=== PATIENT | female | born 1955 | race Caucasian/White ===

== ENCOUNTER 2020-05-08 14:43 | Outpatient (REF) | payer MEDICARE, MEDICAID, SELFPAY ==
--- NOTE | 2020-05-08 | XR_ITS ---
EXAMINATION: XR CERVICAL SPINE. XR THORACIC SPINE. XR LUMBAR SPINE. CLINICAL INFORMATION: Cervicalgia, back pain. COMPARISON: No priors available TECHNIQUE: 3 views of the cervical spine. AP and lateral views of the thoracic spine. 3 views of the lumbar spine. FINDINGS: Cervical spine: Normal alignment and cervical lordosis. No fracture or prevertebral soft tissue swelling. Mild degenerative disc disease at C3-C4 and C5-C6. There is facet arthrosis of the mid cervical spine. Thoracic spine: Normal alignment and thoracic kyphosis. Moderate degenerative disc disease of the midthoracic spine. No fracture or focal osseous lesion. Lumbar spine: Normal alignment and lumbar lordosis. Moderate degenerative disc disease at L5-S1 and probable bilateral facet arthrosis at this level. No focal osseous lesion. IMPRESSION: Normal alignment with mild to moderate degenerative disc disease of the cervical, thoracic, and lumbar spine. No acute abnormalities. Degenerative changes are most prominent at the mid aspect of the thoracic spine, and the lumbosacral junction.
== END 2020-05-08 14:44 | disposition home or self-care (01) ==
LOC: HO.XRAY 14:43
PROVIDERS: PCP Family Medicine; Visit Provider Family Medicine
DX: M54.2 Cervicalgia (principal); M54.5 Low back pain
CPT/HCPCS: 72040; 72072; 72100

== ENCOUNTER 2020-06-24 12:50 | Outpatient (REF) | payer MEDICARE, MEDICAID, SELFPAY | END 2020-06-24 12:51 | disposition home or self-care (01) | LOC: HO.LAB 12:50 | PROVIDERS: PCP Family Medicine; Visit Provider Internal Medicine | DX: Z20.828 Contact with and (suspected) exposure to other viral communicable diseases (principal) | CPT/HCPCS: C9803; U0003 ==

== ENCOUNTER → 2020-10-21 12:16 | Outpatient (BNVA) | payer MEDICARE, MEDICAID, SELFPAY | PROVIDERS: PCP Family Medicine; Visit Provider Surgery | DX: C50.412 Malignant neoplasm of upper-outer quadrant of left female breast (principal); Z17.0 Estrogen receptor positive status [ER+] | CPT/HCPCS: 99212 ==

== ENCOUNTER 2021-04-09 14:39 | Outpatient (REF) | payer MEDICARE, MEDICAID, SELFPAY ==
--- NOTE | ~2021-04-09 | MM_ITS ---
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 Due for yearly. COMPARISON: Mammography: 06/11/2019, 06/08/2018, 05/19/2017, 04/27/2016 TECHNIQUE: Digital breast tomosynthesis is performed in both the craniocaudal and mediolateral oblique views along with computer-aided detection (CAD). Synthesized 2D images are generated from the tomosynthesis. FINDINGS: There are scattered areas of fibroglandular density (ACR BI-RADS breast composition Category b). There are no significant masses, abnormal calcifications, or other abnormalities. There is minor scarring upper left breast similar to prior exam. No developing density. No significant changes. MM/MM tomosynthesis screening BI IMPRESSION: No mammographic evidence of malignancy. Minor scarring upper left breast, stable. ASSESSMENT: BI-RADS 2: Benign RECOMMENDATION: Routine annual mammography screening. This patient's information was entered into a reminder system with a target due date for their next mammogram.
== END 2021-04-09 14:40 | disposition home or self-care (01) ==
LOC: HO.MAMMO 14:39
PROVIDERS: Visit Provider Family Medicine
DX: Z12.31 Encounter for screening mammogram for malignant neoplasm of breast (principal)
CPT/HCPCS: 77063; 77067

== ENCOUNTER → 2021-05-12 13:58 | Outpatient (BNVA) | payer MEDICARE, MEDICAID, SELFPAY | PROVIDERS: PCP Family Medicine; Referring Provider Family Medicine; Visit Provider Surgery | DX: C50.412 Malignant neoplasm of upper-outer quadrant of left female breast (principal); Z17.0 Estrogen receptor positive status [ER+] | CPT/HCPCS: 99212 ==

== ENCOUNTER 2021-06-24 10:57 | Emergency (ER) | payer MEDICARE, MEDICAID, SELFPAY ==
[2021-06-24 11:05] VITALS: BP 157/77; PULSE 79; RESP 18; TEMP 36.8; O2SAT 99; BMI 26.4
--- NOTE | 2021-06-24 11:11 | ED.GENADULT ---
HPI - General Adult General Chief complaint: General Medical Stated complaint: drank bleach, airway tight Time Seen by Provider: 06/24/21 11:09 Source: patient and family Limitations: no limitations History of Present Illness HPI narrative: This is a 66-year-old female who was doing laundry, keeps a container of bleach nearby, also had a water container that appeared similar. Patient accidentally took a swallow of the bleach and subsequently developed discomfort in her throat with some feeling of shortness of breath and slight noise in her upper airway. Patient drank water and milk and then called poison Control and because of her breathing issues was referred to the ED. Patient denies any dizziness, chest pain, nausea vomiting, abdominal pain. Related Data Home Medications Medication Instructions Recorded Confirmed baclofen 5 mg tablet 5 mg PO BEDTIME 10/07/20 10/21/20 multivitamin 1 tab PO DAILY 10/07/20 10/21/20 sertraline 25 mg tablet 25 mg PO DAILY 10/07/20 10/21/20 trazodone 100 mg tablet 100 mg PO BEDTIME 10/07/20 10/21/20 albuterol sulfate 90 mcg/actuation 2 puff INHALATION Q4-6H PRN 10/21/20 10/21/20 aerosol inhaler (Proventil HFA) bupropion HCl 150 mg 24 hr tablet, 150 mg PO QAM 10/21/20 10/21/20 extended release calcium carbonate-vitamin D3 600 cap PO 10/21/20 10/21/20 mg (1,500 mg)-400 unit capsule fluticasone propionate 110 1 puff INHALATION BID 10/21/20 10/21/20 mcg/actuation HFA aerosol inhaler (Flovent HFA) hydrochlorothiazide 12.5 mg capsule 12.5 mg PO DAILY 10/21/20 10/21/20 hydroxyzine pamoate 50 mg capsule 50 mg PO Q6H PRN cap 10/21/20 10/21/20 letrozole 2.5 mg tablet 2.5 mg PO DAILY 10/21/20 10/21/20 loratadine 10 mg capsule 10 mg PO DAILY 10/21/20 10/21/20 multivitamin 1 tab PO DAILY 10/21/20 10/21/20 naproxen 500 mg tablet 500 mg PO BID 10/21/20 10/21/20 omeprazole 20 mg capsule,delayed 20 mg PO DAILY 10/21/20 10/21/20 release Allergies Allergy/AdvReac Type Severity Reaction Status Date / Time Seasonal Allergy Unknown Unknown Uncoded 08/18/20 13:48 Review of Systems Constitutional: Constitutional: Reports as per HPI ENT: Denies hoarseness, Denies lip swelling, Reports sore throat and Denies tongue swelling Cardiovascular: Cardiovascular: Reports as per HPI Respiratory: Respiratory: Reports as per HPI Gastrointestinal: Gastrointestinal: Reports as per HPI Neurologic: Denies Sensory deficit (Neuro) Allergic/Immunologic: Allergic/Immunologic: Denies lip swelling and Denies tongue swelling PMF Past Medical History Medical History Anemia Anxiety Asthma Depression Surgical History History of colonoscopy (04/15/17) History of left breast biopsy Hx of removal of cyst Family History Family History Father Heart disease Social History Social History Alcohol intake: current Alcohol intake frequency: holidays/special occasions only Alcohol type: wine Advance Directives: No Advance Directives Information Provided: Yes Physical Exam Vital Signs: Vital Signs: Last Vital Signs Temp 98.2 F 06/24/21 11:05 Pulse 73 06/24/21 12:34 Resp 18 06/24/21 11:05 BP 167/97 H 06/24/21 12:34 Pulse Ox 98 06/24/21 12:34 Body Mass Index 26.4 Const: General: cooperative, no acute distress and alert Orientation/consciousness: patient oriented x3 HENMT: Head: Yes normal to inspection Eyes: General: appearance normal, both eyes and all related structures Eyelids: Yes eyelids normal Conjunctivae: conjunctivae normal Pupils: Equal, round and reactive pupils present Neck: Neck: Yes normal visual inspection and Yes supple Chest: Chest palpation & inspection: normal inspection of the chest Resp: Effort & Inspection: normal respiratory effort Auscultation: clear to auscultation bilaterally Cardio: Rate: regular rate Rhythm: regular rhythm Heart sounds: S1 normal heart sound present, S2 normal heart sound present, no gallops, no murmurs and no rubs GI: Palpation (GI): Soft to palpation, nontender and Other GI palpation findings present (Non-distended) Auscultation: normal bowel sounds Skin: General skin exam: no rashes or lesions noted Neuro: General: patient oriented x3, no focal motor deficits and CN's II-XI intact bilaterally Cranial nerves: Yes Equal, round and reactive pupils present Cognition (Neuro): normal cognition Motor exam (neuro): 5/5 motor strength present throughout Sensory Exam: No Sensory deficit (Neuro) Extrem: General: Yes normal to inspection and Yes no pedal edema Psych: Appearance: grossly normal Affect: normal affect Medical Decision Making MDM Narrative Medical decision making narrative: Patient to swallow bleach and had some irritation of her throat. Throat normal appearing. No lip or tongue swelling. No stridor. Phonation normal. Patient was treated with lidocaine and Maalox had slight improvement. No evidence of any concerning ingestion or chemical burn Discharge Plan Discharge Clinical Impression: Chemical burn Patient Disposition: Home, Self-Care Instructions: Corrosive Esophagitis (ED) Additional Instructions: Use Tylenol or ibuprofen for discomfort. He can also use a topical medicine [id number] such as Chloraseptic spray. Eat bland foods-avoid acidic foods such as tomato juice orange use for the next few days. Return for any new or worsened symptoms such as shortness of breath, difficulty swallowing. Follow up with primary care physician as needed Prescriptions: No Action multivitamin Tablet 1 tab PO DAILY RF: 0 trazodone 100 mg Tablet 100 mg PO BEDTIME RF: 0 sertraline 25 mg Tablet 25 mg PO DAILY RF: 0 baclofen 5 mg Tablet 5 mg PO BEDTIME RF: 0 loratadine 10 mg capsule 10 mg PO DAILY RF: 0 hydrochlorothiazide 12.5 mg capsule 12.5 mg PO DAILY RF: 0 Flovent HFA 110 mcg/actuation HFA aerosol inhaler 1 puff inhalation BID RF: 0 albuterol sulfate [Proventil HFA] 90 mcg/actuation HFA aerosol inhaler 2 puff inhalation Q4-6H PRNRF: 0 naproxen 500 mg tablet 500 mg PO BID RF: 0 hydroxyzine pamoate 50 mg capsule 50 mg PO Q6H PRNRF: 0 letrozole 2.5 mg tablet 2.5 mg PO DAILY RF: 0 omeprazole 20 mg capsule,delayed release(DR/EC) 20 mg PO DAILY RF: 0 calcium carbonate-vitamin D3 600 mg(1,500mg) -400 unit capsule PO RF: 0 multivitamin Tablet 1 tab PO DAILY RF: 0 bupropion HCl 150 mg tablet extended release 24 hr 150 mg PO QAM RF: 0 Interventions: ED Discharge Assessment Last Done: 06/24/21 12:39 Discharge Date/Time: 06/24/21 12:39
[2021-06-24] MEDS: Magnesium Hydrox/Alum Hydrox 30 ML ORAL.SUSP 15 ML PO (11:24)
[2021-06-24] MEDS: Lidocaine HCl Viscous 2 % 15 ML SOLUTION MUCOUS MEM (11:25)
[2021-06-24] MEDS: Ondansetron ODT 4 MG TAB.RAPDIS TRANSLINGU (12:33)
[2021-06-24 12:34] VITALS: BP 167/97; PULSE 73; O2SAT 98
== END 2021-06-24 12:39 | disposition home or self-care (01) ==
PROVIDERS: Emergency Provider Emergency Medicine; PCP Family Medicine
DX: T54.91XA Toxic effect of unspecified corrosive substance, accidental (unintentional), initial encounter (principal); T28.6XXA Corrosion of esophagus, initial encounter; Y93.E2 Activity, laundry; Y92.9 Unspecified place or not applicable; Y99.9 Unspecified external cause status
CPT/HCPCS: 99283

== ENCOUNTER 2022-04-15 14:13 | Outpatient (REF) | payer MEDICARE, MEDICAID, SELFPAY ==
--- NOTE | ~2022-04-15 | MM_ITS ---
EXAMINATION: BONE DENSITOMETRY CLINICAL INDICATION: On AI therapy. COMPARISON: Baseline BD dated 07/29/2016. TECHNIQUE: Using a [employer] DXA System (software version: 13.1) manufactured by [employer], dual-energy x-ray absorptiometry was performed of the lumbar spine and left hip. The images are of good technical quality. Summary results are attached. FINDINGS: AP SPINE L1-L4: Current: BMD 1.127 g/cm2, Z-score 1.3, T-score -0.4, normal, 6.0% decrease from baseline (<5% change is not significant). Baseline: BMD 1.199 g/cm2. LEFT FEMUR, NECK: Current: BMD 0.931 g/cm2, Z-score 0.9, T-score -0.8, normal. Baseline: BMD 0.973 g/cm2. LEFT FEMUR, TOTAL: Current: BMD 1.060 g/cm2, Z-score 1.8, T-score 0.4, normal, 1.0% increase from baseline (<5% change is not significant). Baseline: BMD 1.050 g/cm2. IDENTIFIED RISK FACTORS: Height loss, thiazide, menopause. HISTORY OF FRACTURE: None listed. MEDICATIONS: Calcium supplements or multivitamin, vitamin D. MM/XR DEXA axial skeleton IMPRESSION: 1. DIAGNOSIS: Normal bone density based on the lowest T-score value of -0.8 in the femoral neck applying World Health Organization criteria. 2. 10-YEAR FRACTURE RISK PREDICTION, FRAX: According to the guidelines, FRAX calculation should only be performed on patients in the osteopenia bone density category. Therefore, FRAX was not performed on this patient. 3. Treatment Recommendations: NOF guidelines recommend consideration for treatment in postmenopausal women and men age 50 and older presenting with the following: -A hip or vertebral (clinical or morphometric) fracture. -T-score less than or equal to -2.5 at the femoral neck or spine after appropriate evaluation to exclude secondary causes. -Low bone mass at the hip or spine and a 10-year fracture probability by FRAX of greater than or equal to 3% for hip fracture or greater than or equal to 20% for major osteoporotic fracture based on the [place] adapted WHO algorithm. 4. Other Recommendations: All treatment decisions require clinical judgment and consideration of individual patient factors, including patient preferences, comorbidities, previous drug use, risk factors not captured in the FRAX model (e.g. frailty, falls, vitamin D deficiency, increased bone turnover, interval significant decline in bone density) and possible under or overestimation of fracture risk by FRAX. FUTURE SCAN RECOMMENDATION: People with diagnosed cases of osteoporosis or at high risk for fracture should have regular bone mineral density tests. For patients eligible for Medicare, routine testing is allowed once every 2 years. The testing frequency can be increased to one year for patients who have rapidly progressing disease, those who are receiving or discontinuing medical therapy to restore bone mass, or have additional risk factors.
--- NOTE | ~2022-04-15 | MM_ITS ---
EXAMINATION: MM SCREENING DIGITAL BREAST TOMOSYNTHESIS, BILATERAL CLINICAL INFORMATION: Screening. Asymptomatic. Left lumpectomy for papillary carcinoma, 2016. COMPARISON: Mammography: 04/09/2021, 06/11/2019, 06/27/2018. TECHNIQUE: Digital breast tomosynthesis is performed in both the craniocaudal and mediolateral oblique views along with computer-aided detection (CAD). Synthesized 2D images are generated from the tomosynthesis. Additional left MLO and exaggerated left CC views are obtained. FINDINGS: There are scattered areas of fibroglandular density (ACR BI-RADS breast composition Category b). Parenchymal pattern is similar to prior studies. Minor post therapy changes on left are stable. There is no developing density or interval mass or architectural abnormality. No abnormal calcifications. MM/MM tomosynthesis screening BI IMPRESSION: -No mammographic evidence of malignancy. -Post therapy changes left breast, stable. ASSESSMENT: BI-RADS 2: Benign RECOMMENDATION: Routine annual mammography screening. This patient's information was entered into a reminder system with a target due date for their next mammogram.
== END 2022-04-15 14:14 | disposition home or self-care (01) ==
LOC: HO.MAMMO 14:13
PROVIDERS: PCP Family Medicine; Visit Provider Internal Medicine
DX: Z12.31 Encounter for screening mammogram for malignant neoplasm of breast (principal); Z13.820 Encounter for screening for osteoporosis; Z79.3 Long term (current) use of hormonal contraceptives; Z78.0 Asymptomatic menopausal state
CPT/HCPCS: 77063; 77067; 77080

== ENCOUNTER → 2022-05-13 15:03 | Outpatient (BNVA) | payer MEDICARE, MEDICAID, SELFPAY | PROVIDERS: PCP Family Medicine; Visit Provider Surgery | DX: Z85.3 Personal history of malignant neoplasm of breast (principal) | CPT/HCPCS: 99212 ==

== ENCOUNTER → 2023-04-21 13:30 | Outpatient (BNV) | payer OTHER, SELFPAY | PROVIDERS: Visit Provider Radiology Diagnostic Radiology | DX: Z12.31 Encounter for screening mammogram for malignant neoplasm of breast (principal) | CPT/HCPCS: 77063; 77067 ==

== ENCOUNTER 2023-04-21 13:32 | Outpatient (REF) | payer OTHER, SELFPAY | END 2023-04-21 13:33 | disposition home or self-care (01) | LOC: HO.MAMMO 13:32 | PROVIDERS: Visit Provider Family Medicine | DX: Z12.31 Encounter for screening mammogram for malignant neoplasm of breast (principal) | CPT/HCPCS: 77063; 77067 ==

== ENCOUNTER 2023-05-12 13:59 | Outpatient (AMB) | payer OTHER, SELFPAY ==
--- NOTE | 2023-05-12 14:02 | MHC.OFFVIS ---
Intake Vital Signs 05/12/23 14:09 Height 5 ft 4 in Weight 129 lb 4 oz BMI 22.2 BP 140/80 H Blood Pressure Location Lt brachial Position Sitting Pulse 63 Intake Visit Reasons: 1 Yr Follow Up Lt Brst CA Intake Note: Patient is seen in office for one year follow up visit, following breast exam. Patient c/o: under left breast painful to the touch Ditch Digger Required: No Import Clerk: Import Clerk Present Accompanied by: Self / Same As Patient Allergies Seasonal Allergy (Unknown, Uncoded 05/12/23 14:09) Unknown HPI HPI Comments History of Present Illness Details 67-year-old female patient returning for a routine cancer follow-up examination. 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 She underwent lumpectomy on 06/01/2016. She subsequently underwent radiation therapy at [facility] and started on letrozole 2.5 mg p.o. q.day for 5 years. She tolerated this well in the medication was subsequently stopped after 5 years. Her most recent mammogram dated 04/21/2023 revealed no mammographic evidence of malignancy (BI-RADS 1). One year follow-up mammogram is recommended. She denies any new breast symptoms other than the soreness in the left breast below the incision. [facility] Medical History Anemia Anxiety Asthma Depression Surgical History Hx of removal of cyst History of left breast biopsy History of colonoscopy (04/15/17) Family History Father Heart disease Social History Household Members: Spouse Housing: House Are you a primary managed care provider to a significant other at home: No Alcohol intake: current Alcohol intake frequency: holidays/special occasions only Alcohol type: wine Patient Tobacco Use Status: Never used Tobacco Current occupational status: employed Review of Systems Const All systems reviewed & are unremarkable except as noted in HPI and below Reports fatigue, Reports poor appetite and Reports weight loss GI Denies abdominal pain Denies nipple discharge Skin/Breast Denies breast swelling, Denies breast skin changes, Denies breast pain, Denies breast mass, Denies change in breast shape and Denies nipple discharge Endo Reports fatigue Physical Exam Vital Signs: Last Vital Signs Pulse 63 05/12/23 14:09 BP 140/80 H 05/12/23 14:09 BMI result Body Mass Index 22.2 Const General: healthy appearing, no acute distress and well developed Nutritional Appearance: well nourished Orientation/consciousness: patient oriented x3 Limitations: no limitations HEENT Head: Yes normocephalic and Yes atraumatic Neck Neck: Yes normal visual inspection, Yes full ROM and Yes no JVD Chest Other: Left breast: No skin change, no nipple retraction, no nipple discharge, no palpable mass, no enlarged lymph nodes well-healed incision in the lower outer quadrant. Right breast: No skin change, no nipple retraction, no nipple discharge, no palpable mass, no enlarged lymph nodes Chest/axillae images: 1. Resp Effort & Inspection: normal respiratory effort, no cough and no respiratory distress Skin General skin exam: no rashes or lesions noted Neuro General: patient oriented x3 Extrem General: Yes no clubbing, cyanosis or edema Assessment & Plan Assessment & Plan (1) Breast cancer, left: Code(s): C50.912 - Malignant neoplasm of unspecified site of left female breast Qualifiers: Breast location: upper outer quadrant of breast Estrogen receptor status: positive Patient sex: female Qualified Code(s): C50.412 - Malignant neoplasm of upper-outer quadrant of left female breast; Z17.0 - Estrogen receptor positive status [ER+] Plan: Patient continues to do well nearly 7 years following left breast papillary carcinoma in situ. Today's examination reveals no evidence of recurrent disease. She should continue monthly self examination, yearly mammograms. She is now off the letrozole after 5 years. I suggested a follow-up examination 1 year sooner p.r.n.. Coding Level of Care Code Est Pt Level 3 (28081) Diagnoses Malignant neoplasm of upper-outer quadrant of left breast in female, estrogen receptor positive C50.412; Z17.0 Breast location: upper outer quadrant of breast Estrogen receptor status: positive Patient sex: female
[2023-05-12 14:09] VITALS: BP 140/80; PULSE 63; BMI 22.2
== END 2023-05-12 14:18 | disposition home or self-care (01) ==
PROVIDERS: Visit Provider Surgery
DX: C50.412 Malignant neoplasm of upper-outer quadrant of left female breast (principal); Z17.0 Estrogen receptor positive status [ER+]
CPT/HCPCS: 99213

== ENCOUNTER → 2023-05-12 13:59 | Outpatient (BNVA) | payer OTHER, SELFPAY | PROVIDERS: Visit Provider Surgery | DX: C50.412 Malignant neoplasm of upper-outer quadrant of left female breast (principal); Z17.0 Estrogen receptor positive status [ER+] | CPT/HCPCS: 99212 ==

== ENCOUNTER 2024-04-17 11:55 | Outpatient (REF) | payer OTHER, SELFPAY ==
[2024-04-17 13:26] LABS: Hemoglobin 14.1 g/dl (12.0-16.0); Mean Corpuscular HGB Conc 32.8 g/dl (31.0-35.0); Mean Corpuscular Hemoglobin 30.7 pg (27.0-33.0); Mean Corpuscular Volume 93.7 fL (80.0-98.0); Mean Platelet Volume 12.5 fL (9.4-12.3); Platelet Count 156 X10*3/uL (160-400); Red Blood Count 4.59 X10*6/uL (4.20-5.50); Red Cell Distribution Width 13.1 % (11.0-16.0); White Blood Count 4.1 X10*3/uL (4.8-10.8)
[2024-04-17 13:53] LABS: Alanine Aminotransferase 13 U/L (0-31); Albumin Level 4.2 g/dL (3.5-5.0); Alkaline Phosphatase 71 U/L (39-117); Anion Gap 9 (12-20); Aspartate Amino Transferase 21 U/L (5-31); Bilirubin Direct 0.2 mg/dL (0.0-0.5); Bilirubin Total 0.8 mg/dL (0.0-1.0); Blood Urea Nitrogen 11 mg/dL (9-16); Calcium 9.5 mg/dL (8.4-10.2); Carbon Dioxide 27 mmol/L (22-29); Chloride 107 mmol/L (96-108); Cholesterol 187 mg/dL (<200); Estimated Glomerular Filt Rate > 60; Glucose Random 96 mg/dL (60-115); HDL Cholesterol 58 mg/dL (>40); Iron 94 mcg/dL (30-160); LDL Cholesterol Calculated 118 mg/dL (<100); Percent Iron Saturation 37 % (15-50); Potassium 3.8 mmol/L (3.3-5.1); Sodium 139 mmol/L (135-145); Total Iron Binding Capacity 257 mcg/dL (228-428); Total Protein 7.4 g/dL (6.5-8.0); Triglycerides 56 mg/dL (<150); Unsaturated Iron Binding 163 ug/dL
[2024-04-17 14:04] LABS: Creatinine Urine 195.62 mg/dL; Microalbum/Creatinine Ratio Ur 13.8 ug/mg cr (<30)
[2024-04-17 14:05] LABS: Estimated Average Glucose 114 mg/dL; Hemoglobin A1c % 5.6 % (<6.0)
[2024-04-17 14:10] LABS: Ferritin 201 ng/mL (10-250); Free T4 (Free Thyroxine) 0.86 ng/dL (0.71-1.85); Thyroid Stimulating Hormone 1.62 uIU/mL (0.32-4.0); Vitamin D 25-OH Total 34.6 ng/mL (>30)
[2024-04-17 14:25] LABS: Folate 15.4 ng/mL (> or = 4.0); Vitamin B12 394 pg/mL (200-900)
[2024-04-18 04:42] LABS: HBc Num1 0.34 S/CO (0.00-0.79); HBsAGNum1 0.25 S/CO (0.00-0.99); Hepatitis B Core Antibody Nonreactive (Nonreactive); Hepatitis B Surface Antigen Negative (Negative); ~Hepatitis C Antibody Nonreactive (Nonreactive)
[2024-04-18 04:44] LABS: Hepatitis A Antibody IgG REACTIVE (Nonreactive); ~Hepatitis A Antibody IgG 13.14 S/CO (0.00-0.99)
[2024-04-18 04:58] LABS: HBS Num1 0.21 mIU/mL (0-7.99); HIV AB/AG Nonreactive (Nonreactive); HIV Num 1 0.05 S/CO (0.00-0.99); ~Hepatitis B Surface Antibody NONREACTIVE (Nonreactive)
[2024-04-19 10:39] LABS: RPR Rapid Plasma Reagin NON-REACTIVE (NON-REACTIVE)
== END 2024-04-17 11:56 | disposition home or self-care (01) ==
LOC: HO.HHCL 11:55
PROVIDERS: Visit Provider Family Medicine
DX: Z00.00 Encounter for general adult medical examination without abnormal findings (principal); I10 Essential (primary) hypertension; F33.9 Major depressive disorder, recurrent, unspecified; J45.30 Mild persistent asthma, uncomplicated; Z85.3 Personal history of malignant neoplasm of breast; M54.50 Low back pain, unspecified; G89.29 Other chronic pain; Z23 Encounter for immunization; Z13.1 Encounter for screening for diabetes mellitus
CPT/HCPCS: 36415; 80048; 80061; 80076; 82043; 82306; 82570; 82607; 82728; 82746; 83036; 83540; 84439; 84443; 85027; 86592; 86704; 86706; 86708; 86803; 87340; 87389

== ENCOUNTER 2024-05-17 13:06 | Outpatient (AMB) | payer OTHER, SELFPAY ==
--- NOTE | 2024-05-17 13:05 | A.OFFVIS_ITS ---
Vital Signs 3 05/17/24 13:11 Height 5 ft 4 in Weight 132 lb BMI 22.7 BP 160/75 H Blood Pressure Location Lt brachial Position Sitting Pulse 57 Intake Visit Reasons: 1 Yr Follow Up Lt Brst CA Intake Note: Patient is seen in office for yearly breast exam. 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 Apprentice Required: No Office Equipment Mechanic: Office Equipment Mechanic Present Accompanied by: Self / Same As Patient Allergies Seasonal Allergy (Unknown, Uncoded 05/17/24 13:05) Unknown Medication List - Last Reconciled 05/17/24 by Davie Vale MD albuterol sulfate 90 mcg/actuation (Proventil HFA) 2 puffs inhalation Q4-6H PRN baclofen 5 mg PO BEDTIME bupropion HCl XL 150 mg PO QAM calcium carbonate-vitamin D3 600 mg-10 mcg (400 unit) 1 cap PO DAILY fluticasone propionate 110 mcg/actuation (Flovent HFA) 1 puff inhalation BID hydrochlorothiazide 12.5 mg PO DAILY hydroxyzine pamoate (Vistaril) 50 mg PO Q6H PRN loratadine (Claritin Liqui-Gel) 10 mg PO DAILY multivitamin 1 tab PO DAILY naproxen (Naprosyn) 500 mg PO BID omeprazole 20 mg PO DAILY sertraline 25 mg PO DAILY trazodone 100 mg PO BEDTIME HPI Comments Details: 68-year-old female patient returning for a routine cancer follow-up examination. She is now 8 years post lumpectomy for a left breast papillary carcinoma (DCIS), ER/ND positive, located at the 2 o'clock position, measuring 0.4 by 0.3 cm. She underwent lumpectomy on 06/01/2016. She subsequently underwent radiation therapy at [facility] and started on letrozole 2.5 mg p.o. q.day for 5 years. She tolerated this well in the medication was subsequently stopped after 5 years. Her most recent mammogram dated 04/21/2023 revealed no mammographic evidence of malignancy (BI-RADS 1). She was initially scheduled for a bilateral mammogram however needed to canceled due to neck pain. She will schedule this screening mammogram at the [facility] at her earliest convenience. She reports some soreness in the left breast at the lower inner quadrant but denies any other breast symptoms. [facility] Medical History Anemia Anxiety Depression Asthma Surgical History Hx of removal of cyst History of left breast biopsy History of colonoscopy (04/15/17) Family History Father Heart disease Social History Household Members: Spouse Housing: House Are you a primary rn care transition to a significant other at home: No Alcohol intake: current Alcohol intake frequency: holidays/special occasions only Alcohol type: wine Patient Tobacco Use Status: Never used Tobacco Current occupational status: employed Review of Systems Const All systems reviewed & are unremarkable except as noted in HPI and below Reports fatigue, Reports poor appetite and Reports weight loss GI Denies abdominal pain Denies nipple discharge Skin/Breast Denies breast swelling, Denies breast skin changes, Denies breast pain, Denies breast mass, Denies change in breast shape and Denies nipple discharge Endo Reports fatigue Physical Exam Vital Signs: Last Vital Signs Pulse 57 05/17/24 13:11 BP 160/75 H 05/17/24 13:11 BMI result Body Mass Index 22.7 Const General: healthy appearing, no acute distress and well developed Nutritional Appearance: well nourished Orientation/consciousness: patient oriented x3 Limitations: no limitations HEENT Head: Yes normocephalic and Yes atraumatic Neck Neck: Yes normal visual inspection, Yes full ROM and Yes no JVD Chest Other: Left breast: No skin change, no nipple retraction, no nipple discharge, no palpable mass, no enlarged lymph nodes well-healed incision in the lower outer quadrant. Right breast: No skin change, no nipple retraction, no nipple discharge, no palpable mass, no enlarged lymph nodes Chest/axillae images: 2 1. Incision upper outer quadrant left breast Resp Effort & Inspection: normal respiratory effort, no cough and no respiratory distress Skin General skin exam: no rashes or lesions noted Neuro General: patient oriented x3 Extrem General: Yes no clubbing, cyanosis or edema Assessment & Plan Assessment & Plan (1) Breast cancer, left: Code(s): C50.912 - Malignant neoplasm of unspecified site of left female breast Category: Medical Qualifiers: Breast location: upper outer quadrant of breast Estrogen receptor status: positive Patient sex: female Qualified Code(s): C50.412 - Malignant neoplasm of upper-outer quadrant of left female breast; Z17.0 - Estrogen receptor positive status [ER+] Plan: Patient continues to do well nearly 8 years following left breast papillary carcinoma in situ. Today's examination reveals no evidence of recurrent disease. She should continue monthly self examination, yearly mammograms. She is now off the letrozole after 5 years. I suggested a follow-up examination 1 year sooner p.r.n.. She will call to set up her annual mammogram at the [facility]. Orders: Orders 2 MM screening mammo BI Today C50.412 - Malignant neoplasm of upper-outer quadrant of left female breast, Z17.0 - Estrogen receptor positive status [ER+] Coding Level of Care Code Est Pt Level 3 (45281) Diagnoses Malignant neoplasm of upper-outer quadrant of left breast in female, estrogen receptor positive C50.412; Z17.0 Breast location: upper outer quadrant of breast Estrogen receptor status: positive Patient sex: female
[2024-05-17 13:11] VITALS: BP 160/75; PULSE 57; BMI 22.7
== END 2024-05-17 13:20 | disposition home or self-care (01) ==
PROVIDERS: Visit Provider Surgery
DX: C50.412 Malignant neoplasm of upper-outer quadrant of left female breast (principal); Z17.0 Estrogen receptor positive status [ER+]
CPT/HCPCS: 99213

== ENCOUNTER → 2024-05-17 13:06 | Outpatient (BNVA) | payer OTHER, SELFPAY | PROVIDERS: Visit Provider Surgery | DX: C50.412 Malignant neoplasm of upper-outer quadrant of left female breast (principal); Z17.0 Estrogen receptor positive status [ER+] | CPT/HCPCS: 99212 ==

== ENCOUNTER 2024-06-28 12:00 | Outpatient (REF) | payer OTHER, SELFPAY ==
--- NOTE | ~2024-06-28 | MM_ITS ---
EXAMINATION: MM SCREENING DIGITAL BREAST TOMOSYNTHESIS, BILATERAL CLINICAL INFORMATION: Screening. Asymptomatic. COMPARISON: Mammography: Comparison is made with available priors TECHNIQUE: Digital breast mammography with tomosynthesis is performed in both the craniocaudal and mediolateral oblique views along with computer-aided detection (CAD). FINDINGS: There are scattered areas of fibroglandular density (ACR BI-RADS breast composition Category b). Status post left postsurgical changes are stable. There are no significant masses, abnormal calcifications, or other abnormalities. MM/MM tomosynthesis screening BI IMPRESSION: No mammographic evidence of malignancy. ASSESSMENT: BI-RADS BI-RADS 2 - Benign Findings RECOMMENDATION: Routine annual mammography screening. 1 year F/U This examination should not preclude the clinical evaluation of a suspicious palpable abnormality. This patient's information was entered into a reminder system with a target due date for their next mammogram. Electronically signed by: Mackenzie Ross DO 07/09/2024 09:45 AM GERRY
== END 2024-06-28 12:01 | disposition home or self-care (01) ==
LOC: HO.MAMMO 12:00
PROVIDERS: PCP Family Medicine; Referring Provider Internal Medicine; Visit Provider Surgery
DX: Z12.31 Encounter for screening mammogram for malignant neoplasm of breast (principal)
CPT/HCPCS: 77063; 77067

== ENCOUNTER → 2024-06-28 12:30 | Outpatient (BNV) | payer OTHER, SELFPAY | PROVIDERS: PCP Family Medicine; Referring Provider Internal Medicine; Visit Provider Internal Medicine | DX: Z12.31 Encounter for screening mammogram for malignant neoplasm of breast (principal) | CPT/HCPCS: 77063; 77067 ==

== ENCOUNTER 2025-06-04 13:09 | Outpatient (AMB) | payer OTHER, SELFPAY ==
--- NOTE | 2025-06-04 13:17 | A.OFFVIS_ITS ---
Intake Visit Reasons: yearly breast exam Intake Note: Patient is seen in office for yearly breast exam. Pt c/o: continued pain under the left breast where the surgery was perform mm sched:07/11/25 Content Designer Required: No Bowling Ball Patcher: Bowling Ball Patcher Present Accompanied by: Self / Same As Patient Allergies Seasonal Allergy (Unknown, Uncoded 06/04/25 13:24) Unknown Medication List - Last Reconciled 06/04/25 by Davie Vale MD albuterol sulfate 90 mcg/actuation (Proventil HFA) 2 puffs inhalation Q4-6H PRN baclofen 5 mg PO BEDTIME bupropion HCl XL 150 mg PO QAM calcium carbonate-vitamin D3 600 mg-10 mcg (400 unit) 1 cap PO DAILY fluticasone propionate 110 mcg/actuation (Flovent HFA) 1 puff inhalation BID hydrochlorothiazide 12.5 mg PO DAILY hydroxyzine pamoate (Vistaril) 50 mg PO Q6H PRN loratadine (Claritin Liqui-Gel) 10 mg PO DAILY multivitamin 1 tab PO DAILY naproxen (Naprosyn) 500 mg PO BID omeprazole 20 mg PO DAILY sertraline 25 mg PO DAILY trazodone 100 mg PO BEDTIME HPI Comments Details: 69-year-old female patient returning for routine breast cancer follow-up examination. 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 She was subsequently evaluated by Dr. Marte. She underwent radiation therapy at [facility] and then started letrozole 2.5 mg p.o. q.day for 5 years, and tolerated this medication well. Her most recent mammogram was performed on 06/28/2024 and revealed no mammographic evidence of malignancy (BI-RADS 2). She is scheduled for her annual mammogram on 07/11/2025. She reports only occasional soreness in the left breast but generally feels well. [facility] Medical History Anemia Anxiety Depression Asthma Surgical History Hx of removal of cyst History of left breast biopsy History of colonoscopy (04/15/17) Family History Father Heart disease Social History Household Members: Spouse Housing: House Are you a primary intensive care specialist to a significant other at home: No Alcohol intake: current Alcohol intake frequency: holidays/special occasions only Alcohol type: wine Patient Tobacco Use Status: Never used Tobacco Current occupational status: employed Review of Systems Const All systems reviewed & are unremarkable except as noted in HPI and below Reports fatigue, Reports poor appetite and Reports weight loss GI Denies abdominal pain Denies nipple discharge Skin/Breast Denies breast swelling, Denies breast skin changes, Denies breast pain, Denies breast mass, Denies change in breast shape and Denies nipple discharge Endo Reports fatigue Physical Exam Const General: healthy appearing, no acute distress and well developed Nutritional Appearance: well nourished Orientation/consciousness: patient oriented x3 Limitations: no limitations HEENT Head: Yes normocephalic and Yes atraumatic Neck Neck: Yes normal visual inspection, Yes full ROM and Yes no JVD Chest Other: Left breast: No skin change, no nipple retraction, no nipple discharge, no palpable mass, no enlarged lymph nodes well-healed incision in the lower outer quadrant. Right breast: No skin change, no nipple retraction, no nipple discharge, no palpable mass, no enlarged lymph nodes Chest/axillae images: 2 1. Resp Effort & Inspection: normal respiratory effort, no cough and no respiratory distress Skin General skin exam: no rashes or lesions noted Neuro Other: Mobility Assessment: 1. 3 meter assessment time (seconds) 6 2. Gait observations: Normal balance and gait General: patient oriented x3 Extrem General: Yes no clubbing, cyanosis or edema Assessment & Plan Assessment & Plan (1) Breast cancer, left: Code(s): C50.912 - Malignant neoplasm of unspecified site of left female breast Category: Medical Qualifiers: Breast location: upper outer quadrant of breast Estrogen receptor status: positive Patient sex: female Qualified Code(s): C50.412 - Malignant neoplasm of upper-outer quadrant of left female breast; Z17.0 - Estrogen receptor positive status [ER+] Plan: 69-year-old female patient returning for follow-up breast examination after left breast lumpectomy for a papillary carcinoma in-situ. Examination today revealed no evidence of recurrent disease in either breast. Her most recent mammogram of 06/28/2024 revealed no mammographic evidence of malignancy. She is scheduled for her annual mammogram on 07/11/2025 at the [facility]. I recommended follow-up examination in 1 year, sooner PRN. Coding Level of Care Code Est Pt Level 3 (61702) Complex EM visit Add On G2211 Diagnoses Malignant neoplasm of upper-outer quadrant of left breast in female, estrogen receptor positive C50.412; Z17.0 Breast location: upper outer quadrant of breast Estrogen receptor status: positive Patient sex: female
== END 2025-06-04 13:41 | disposition home or self-care (01) ==
LOC: HO.HGS 13:10
PROVIDERS: PCP Family Medicine; Visit Provider Surgery
DX: C50.412 Malignant neoplasm of upper-outer quadrant of left female breast (principal); Z17.0 Estrogen receptor positive status [ER+]
CPT/HCPCS: 99213; G2211

== ENCOUNTER → 2025-06-04 13:09 | Outpatient (BNVA) | payer OTHER, SELFPAY | PROVIDERS: PCP Family Medicine; Visit Provider Surgery | DX: C50.412 Malignant neoplasm of upper-outer quadrant of left female breast (principal); Z17.0 Estrogen receptor positive status [ER+] | CPT/HCPCS: 99212 ==

== ENCOUNTER 2025-07-11 12:22 | Outpatient (REF) | payer OTHER, SELFPAY ==
--- NOTE | ~2025-07-11 | MM_ITS ---
EXAMINATION: MM SCREENING DIGITAL BREAST TOMOSYNTHESIS, BILATERAL CLINICAL INFORMATION: Screening. Asymptomatic. History of left lumpectomy on June 01, 2016; needle core biopsy showed papillary carcinoma. COMPARISON: Comparison made to multiple prior, most recent June 28, 2024, and most remote May 19, 2017. TECHNIQUE: Digital breast tomosynthesis is performed in mediolateral oblique and craniocaudal views along with computer-aided detection (CAD). Synthesized 2D images are generated from the tomosynthesis. FINDINGS: BREAST COMPOSITION: There are scattered areas of fibroglandular density. RIGHT BREAST: No significant masses, suspicious calcifications or other abnormalities are seen. LEFT BREAST: Post lumpectomy changes. No significant masses, suspicious calcifications or other abnormalities are seen. MM/MM tomosynthesis screening BI IMPRESSION: BILATERAL BREASTS: Benign, no mammographic evidence of malignancy. Normal interval follow-up is recommended in 12 months. ASSESSMENT: BI-RADS: Category 2: Benign RECOMMENDATION: Routine annual mammography screening. FOLLOW-UP: 1 year F/U This examination should not preclude the clinical evaluation of a suspicious palpable abnormality. This patient's information was entered into a reminder system with a target due date for their next mammogram. Electronically signed by: Grace Huber MD 07/11/2025 01:21 PM GERRY
== END 2025-07-11 12:23 | disposition home or self-care (01) ==
LOC: HO.MAMMO 12:22
PROVIDERS: PCP Family Medicine; Visit Provider Family Medicine
DX: Z12.31 Encounter for screening mammogram for malignant neoplasm of breast (principal)
CPT/HCPCS: 77063; 77067

== ENCOUNTER → 2025-07-11 12:30 | Outpatient (BNV) | payer OTHER, SELFPAY | PROVIDERS: PCP Family Medicine; Visit Provider Radiology Body Imaging | DX: Z12.31 Encounter for screening mammogram for malignant neoplasm of breast (principal) | CPT/HCPCS: 77063; 77067 ==

== ENCOUNTER 2025-07-24 14:38 | Outpatient (REF) | payer OTHER, SELFPAY ==
[2025-07-24 16:12] LABS: CT PCR NOT DETECTED (Not Detect.); NG PCR NOT DETECTED (Not Detect.)
== END 2025-07-24 14:39 | disposition home or self-care (01) ==
LOC: HO.HHCLNP 14:38
PROVIDERS: Visit Provider Family Medicine
DX: Z01.419 Encounter for gynecological examination (general) (routine) without abnormal findings (principal); Z20.2 Contact with and (suspected) exposure to infections with a predominantly sexual mode of transmission
CPT/HCPCS: 87491; 87591; 87626; 88175